=== PATIENT | male | born 1975 | race Caucasian/White ===

== ENCOUNTER 2022-08-22 09:09 | Outpatient (REF) | payer OTHER, SELFPAY ==
[2022-08-23 12:46] LABS: Follicle Stimulating Hormone 5.4 mIU/mL (1.6-8.0); Lutenizing Hormone 9.3 mIU/mL (1.5-9.3)
[2022-08-23 16:56] LABS: DHEA Sulfate 57 mcg/dL (61-442)
[2022-08-27 04:32] LABS: Metanephrine, Free 33 pg/mL (<=57); Normetanephrines, Free 74 pg/mL (<=148); Total Metanephrine, Free 107 pg/mL (<=205)
[2022-08-27 14:07] LABS: Testosterone-Albumin 4.1 g/dL (3.6-5.1); Testosterone-Bioavailable 150.2 ng/dL (110.0-575.0); Testosterone-Free 79.8 pg/mL (46.0-224.0); Testosterone-SHBG 66 nmol/L (10-50); Testosterone-Total 975 ng/dL (250-1100)
[2022-08-28 12:37] LABS: Renin 0.38 ng/mL/h (0.25-5.82)
== END 2022-08-22 09:10 | disposition home or self-care (01) ==
LOC: HO.LAB 09:09
PROVIDERS: PCP Nurse Practitioner Family; Visit Provider Internal Medicine Endocrinology, Diabetes & Metabolism
DX: D35.00 Benign neoplasm of unspecified adrenal gland (principal)
CPT/HCPCS: 36415; 82088; 82627; 83001; 83002; 83835; 84244; 84402; 84403

== ENCOUNTER 2022-08-29 07:45 | Outpatient (REF) | payer OTHER, SELFPAY ==
[2022-08-29 11:06] LABS: Cortisol Random < 1.0 ug/dL
[2022-09-06 11:07] LABS: Dexamethasone 267 ng/dL
== END 2022-08-29 07:46 | disposition home or self-care (01) ==
LOC: HO.LAB 07:45
PROVIDERS: PCP Nurse Practitioner Family; Visit Provider Internal Medicine Endocrinology, Diabetes & Metabolism
DX: D35.00 Benign neoplasm of unspecified adrenal gland (principal)
CPT/HCPCS: 36415; 80299; 82533

== ENCOUNTER 2022-09-06 07:53 | Outpatient (REF) | payer OTHER, SELFPAY ==
--- NOTE | ~2022-09-06 | CT_ITS ---
EXAMINATION: CT ABDOMEN WITHOUT CONTRAST CLINICAL INFORMATION: Benign neoplasm of adrenal gland COMPARISON: None TECHNIQUE: Contiguous axial thin section helical images of the abdomen were performed without contrast. The data set was reformatted in the coronal and sagittal planes and reviewed on an independent workstation. This CT examination was performed using dose optimization techniques as appropriate, variously including the following: *Automated exposure control *Adjustment of mA and/or kV according to patient size (this includes techniques or standardized protocols for targeted exams where dose is matched to indication/reason for exam; i.e. extremities or head) *Use of iterative reconstruction technique DLP: 286 mGy-cm FINDINGS: LUNG BASES: The lung bases are clear. LIVER, GALLBLADDER, BILIARY TREE: The visualized liver is unremarkable. The visualized gallbladder is unremarkable. PANCREAS: Unremarkable SPLEEN: Unremarkable ADRENAL GLANDS AND KIDNEYS: There is a 1 x 1.5 cm low-attenuation lesion in the posterior limb of the left adrenal gland. Mean Hounsfield units measure 6.8, raising -39-43, suggestive of a benign adenoma. The adrenal glands are otherwise normal. There is a 2.5 cm low-attenuation lesion in the upper pole the right kidney suggestive of a cyst. No imaging follow-up. Kidneys are otherwise unremarkable. BOWEL LOOPS: Visualized bowel is unremarkable. LYMPH NODES: Normal. VASCULAR: Unremarkable. BONES: Unremarkable CT/CT abdomen wo IV con IMPRESSION: 1 x 1.5 cm low-attenuation lesion in the posterior limb of the left adrenal gland suggestive of a benign rich adenoma. Right renal cyst. Fleischner guidelines were followed.
== END 2022-09-06 07:54 | disposition home or self-care (01) ==
LOC: HO.CT 07:53
PROVIDERS: PCP Nurse Practitioner Family; Visit Provider Internal Medicine Endocrinology, Diabetes & Metabolism
DX: D35.00 Benign neoplasm of unspecified adrenal gland (principal)
CPT/HCPCS: 74150

== ENCOUNTER → 2022-10-31 09:30 | Outpatient (BNVA) | payer OTHER, SELFPAY | PROVIDERS: PCP Nurse Practitioner Family; Visit Provider Internal Medicine Endocrinology, Diabetes & Metabolism | DX: D35.00 Benign neoplasm of unspecified adrenal gland (principal) ==

== ENCOUNTER 2023-10-30 07:50 | Outpatient (AMB) | payer OTHER, SELFPAY ==
[2023-10-30 07:53] VITALS: BP 126/84; PULSE 59; BMI 42.6
--- NOTE | 2023-10-30 07:53 | A.OFFVIS_ITS ---
Intake Vital Signs 10/30/23 07:53 Height 6 ft 4.85 in Weight 358 lb 0.491 oz BMI 42.6 BP 126/84 Blood Pressure Location Rt brachial Position Sitting Pulse 59 Pulse Source Pulse Oximeter Intake Visit Reasons: adrenal adenoma-confirmed Intake Note: Patient present today for Adrenal adenoma follow up visit. 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 Had CT abdomen/pelvis 07/31/2022 for which revealed 1.7 cm adrenal adenoma 11 Hounsfield U. repeat imaging was consistent with a benign adenoma with low Housfield units Denies history of spells with headache, flushing, diaphoresis, abdominal pain or diarrhea. Denies any weight gain, frequent infections, easy bruisability, development of violaceous striae. +History of HTN, controlled on agents. No history of anticoagulant use. [Denies] any weight loss, orthostatic symptoms, hypoglycemia. No history of malignancy or TB. Decrease in libido and errection function. No liver problems . Imaging: Labs: Showed elevated testosterone, elevated SHBG and borderline elevated free testosterone Further workup showed normal testosterone, normal free testosterone, normal plasma metanephrines, normal dexamethasone suppression test and normal renin and aldosterone No sx of pheochromocytoma [facility] Medical History (Updated 08/22/22 @ 08:35 by Roscoe López MD) Adrenal adenoma Surgical History History of carpal tunnel surgery History of fracture of right ankle History of tonsillectomy and adenoidectomy History of placement of ear tubes Family History Mother Diabetes Cancer Dementia Uterine cancer Father Lung cancer Social History Household Members: Significant Other and Family Household Members Other:: fiance, 3 kids Alcohol intake: current Alcohol intake frequency: holidays/special occasions only Patient Tobacco Use Status: Current everyday Tobacco user Physical Exam Vital Signs: Last Vital Signs Pulse 59 10/30/23 07:53 BP 126/84 10/30/23 07:53 BMI result Body Mass Index 42.6 Assessment & Plan Assessment & Plan (1) Adrenal adenoma: Code(s): D35.00 - Benign neoplasm of unspecified adrenal gland Plan: This is a 47-year-old white male with a history of adrenal adenoma with imaging consistent benign adenoma and found to be non-secretory. The plan is for observation. Will repeat dexamethasone suppression test Orders: Orders Dexamethasone Today D35.00 - Benign neoplasm of unspecified adrenal gland Cortisol Random Today D35.00 - Benign neoplasm of unspecified adrenal gland Medications: New dexamethasone 1 mg PO ONCE 1 tab 0RF Coding Level of Care Code Est Pt Level 3 (73690) Diagnoses Adrenal adenoma D35.00
== END 2023-10-30 08:14 | disposition home or self-care (01) ==
PROVIDERS: PCP Nurse Practitioner Family; Visit Provider Internal Medicine Endocrinology, Diabetes & Metabolism
DX: D35.00 Benign neoplasm of unspecified adrenal gland (principal)
CPT/HCPCS: 99213

== ENCOUNTER → 2023-10-30 07:50 | Outpatient (BNVA) | payer OTHER, SELFPAY | PROVIDERS: PCP Nurse Practitioner Family; Visit Provider Internal Medicine Endocrinology, Diabetes & Metabolism ==

== ENCOUNTER 2024-10-30 07:58 | Outpatient (AMB) | payer OTHER, SELFPAY ==
[2024-10-30 08:00] VITALS: BP 124/70; PULSE 71; BMI 46.4
--- NOTE | 2024-10-30 08:00 | A.OFFVIS_ITS ---
Vital Signs 3 10/30/24 08:00 Height 6 ft 4.85 in Weight 389 lb 8.909 oz BMI 46.4 BP 124/70 Blood Pressure Location Rt brachial Position Sitting Pulse 71 Pulse Source Pulse Oximeter Intake Visit Reasons: adrenal adenomaD Intake Note: Patient present today for adrenal adenoma office visit. 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 Accompanied by: Self / Same As Patient Allergies Penicillins Allergy (Unknown, Verified 10/30/24 08:03) Rash bupropion [From Wellbutrin] Adverse Reaction (Unknown, Verified 10/30/24 08:03) Insomnia Medication List - Last Reconciled 10/30/24 by Abeba Joseph MD aspirin (Adult Low Dose Aspirin) 81 mg PO DAILY atenolol 50 mg PO DAILY cholecalciferol (vitamin D3) 125 mcg PO DAILY esomeprazole magnesium (Nexium 24HR) 20 mg PO DAILY magnesium oxide 400 mg PO DAILY [id number] oil 350-600 mg (Fish Oil) caps PO sildenafil (Viagra) 25 mg PO DAILY PRN HPI Comments Details: 47 YO M with who is seen for follow up for left adrenal incidentaloma. HPI from prior visit Had CT abdomen/pelvis 07/31/2022 for which revealed 1.7 cm adrenal adenoma 11 Hounsfield U. repeat imaging 09/06/22 was consistent with a left 1.5 cm benign adenoma with low Housfield units Denies history of spells with headache, flushing, diaphoresis, abdominal pain or diarrhea. Denies any weight gain, frequent infections, easy bruisability, development of violaceous striae. +History of HTN, controlled on agents. No history of anticoagulant use. [Denies] any weight loss, orthostatic symptoms, hypoglycemia. No history of malignancy or TB. Decrease in libido and errection function. No liver problems . 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 Obesity Current BMI 46.4 kg per m2 Current weight 389 lb, in October 2022 used to be 358 lb He is not exercising due to joint pains and bad knees. 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 Not following any specific diet. No change in ring size or shoe size. He is getting evaluated for hypercortisolism due to left adrenal incidentaloma. Physical exam General: sitting comfortably in no acute distress HEENT: normocephalic/atraumatic, moist oral mucosa Neck: supple, symmetrical, no thyromegaly , does have dorsocervical and supraclavicular fat pads Cardiac: normal heart sounds Pulm: normal breath sounds B/L, no added breath sounds Abd: not distended, no tenderness, no wide purple striae noted Extremities: no edema, no signs of myxedema, does have upper proximal muscle weakness power 4/5 Laboratory Tests 08/22/22 08/29/22 09:32 07:54 Albumin 4.1 Renin 0.38 Aldosterone 2 FSH 5.4 Luteinizing Hormone 9.3 Testosterone Level 975 Free Testoster w SHBG 79.8 Bioavail Testosterone 150.2 Sex Hormone Bind Glob 66 H DHEA Sulfate 57 L Random Cortisol < 1.0 Plasma Free Metaneph 33 Plasma Free Normeta 74 Plas Total Metaneph [address] ABDOMEN WITHOUT CONTRAST 09/06/22 CLINICAL INFORMATION: Benign neoplasm of adrenal gland COMPARISON: None TECHNIQUE: Contiguous axial thin section helical images of the abdomen were performed without contrast. The data set was reformatted in the coronal and sagittal planes and reviewed on an independent workstation. This CT examination was performed using dose optimization techniques as appropriate, variously including the following: *Automated exposure control *Adjustment of mA and/or kV according to patient size (this includes techniques or standardized protocols for targeted exams where dose is matched to indication/reason for exam; i.e. extremities or head) *Use of iterative reconstruction technique DLP: 286 mGy-cm FINDINGS: LUNG BASES: The lung bases are clear. LIVER, GALLBLADDER, BILIARY TREE: The visualized liver is unremarkable. The visualized gallbladder is unremarkable. PANCREAS: Unremarkable SPLEEN: Unremarkable ADRENAL GLANDS AND KIDNEYS: There is a 1 x 1.5 cm low-attenuation lesion in the posterior limb of the left adrenal gland. Mean Hounsfield units measure 6.8, raising -39-43, suggestive of a benign adenoma. The adrenal glands are otherwise normal. There is a 2.5 cm low-attenuation lesion in the upper pole the right kidney suggestive of a cyst. No imaging follow-up. Kidneys are otherwise unremarkable. BOWEL LOOPS: Visualized bowel is unremarkable. LYMPH NODES: Normal. VASCULAR: Unremarkable. BONES: Unremarkable CT/CT abdomen wo IV con IMPRESSION: 1 x 1.5 cm low-attenuation lesion in the posterior limb of the left adrenal gland suggestive of a benign rich adenoma. Right renal cyst. Fleischner guidelines were followed. [facility] Medical History (Updated 10/30/24 @ 08:29 by Abeba Joseph MD) Obesity Adrenal adenoma Surgical History History of carpal tunnel surgery History of fracture of right ankle History of tonsillectomy and adenoidectomy History of placement of ear tubes Family History Mother Diabetes Cancer Dementia Uterine cancer Father Lung cancer Social History Household Members: Significant Other and Family Household Members Other:: fiance, 3 kids Alcohol intake: current Alcohol intake frequency: holidays/special occasions only Patient Tobacco Use Status: Current everyday Tobacco user Physical Exam Vital Signs: BMI result Body Mass Index 46.4 Assessment & Plan Assessment & Plan (1) Adrenal adenoma: Code(s): D35.00 - Benign neoplasm of unspecified adrenal gland Category: Medical Plan: 48-year-old male with past medical history significant for hypertension, atrial fibrillation who was found to have a 1.7 cm left adrenal incidentaloma on CT scan in July 2022. Repeat imaging done in August 2022 showed a 1.5 cm left adrenal adenoma, lipid rich features. Consistent with benign adenoma. Lab workup from July 2022 showed no concern for primary hyperaldosteronism, ruled out pheochromocytoma with normal plasma metanephrine levels and normetanephrine levels, normal 1 mg dexamethasone suppression test from August 2022. At this time he has had a weight gain of 30 lb in the past year. Though this could be due to excess calorie consumption, we will repeat 1 mg dexamethasone suppression test. Plan: -ordered 1 mg dexamethasone suppression tests -if results of these are normal we will plan to see him back in 1 year, if abnormal results we will arrange sooner follow up (2) Obesity: Code(s): E66.9 - Obesity, unspecified Category: Medical Qualifiers: Obesity type: due to excess calories Obesity classification: adult class 3 (BMI >= 40) Serious obesity comorbidity presence: with serious comorbidity Body mass index: BMI 45.0-49.9 Qualified Code(s): E66.813 - Obesity, class 3; E66.01 - Morbid (severe) obesity due to excess calories; Z68.42 - Body mass index [BMI] 45.0-49.9, adult Plan: Current BMI 46.4 kg per m2. Has a history of hypertension, so also has comorbidity with the obesity. Current weight 389 lb, has gained 30 lb in the past year. No change in ring size or shoe size. He is not interested in weight loss medications or bariatric surgery at this time. I know what to do I just have to do it I provided weight loss counseling education with lifestyle modification. Patient will let us know if he is interested in further weight management. Plan I spent 30 minutes in reviewing the record, seeing the patient and documenting in the medical record. Orders: Orders 2 Adrenocorticotropic Hormone Today D35.00 - Benign neoplasm of unspecified adrenal gland Dexamethasone Today D35.00 - Benign neoplasm of unspecified adrenal gland Cortisol Random Today D35.00 - Benign neoplasm of unspecified adrenal gland Medications: New 2 dexamethasone Take 1 tablet at 11 pm at night and do blood work next day at 8 AM 1 mg PO DAILY 1 tab 0RF Patient Instructions: Dexamethasone suppression test I would like you to do a dexamethasone suppression test to rule out Cushings syndrome. You will take a 1 mg pill of dexamethasone at 11 PM and then have a blood draw for cortisol at 8AM the next morning. It is important to make sure you take the dexamethasone at 11 PM and have the blood test as close to 8AM as possible. Weight loss counselling ? Limit added sugars to less than 25 grams daily. There are 4.2 grams of sugar per teaspoon of sugar. A teaspoon of honey has 6 grams of sugar! Bread also can have more sugar than you think-check labels ? No soda or juices. Drink water, unsweetened iced tea or seltzer ? Limit eating out/take out or prepared meals to twice weekly at most ? Avoid red meat, hot dogs, sawyer and deli meat. Substitute plant protein for animal protein as much as you can. Beans, nuts, tofu, soy milk ? Limit cheese to 1 ounce a few times weekly ? Eat high fiber foods like beans, apples and green veggies, salsa is a great snack with whole grain cracker like Wasa ? Look for the whole grain stamp when choosing bread etc. Aim for 48 grams of whole grains daily. Whole wheat does not equal whole grains! ? Don't keep tempting treats in the house. Go out once in a while for a treat. ? Don't eat anything deep fried or cream based-no sour cream Try to aim for 17961 steps per day, start with 5000 steps and work your way up to 27829 steps daily You can download phone applications such as [employer] or [employer] to track your calorie intake IF you eat daily 500 calories less than you need by tracking calories with this joshua you will lose 1 lbs per week Please let us know if you are interested in talking with us about weight loss medications or weight loss surgery Obesity leads to heart disease, stroke, sleep apnea, joint issues. Coding Level of Care Code Est Pt Level 4 (08481) Diagnoses Adrenal adenoma D35.00 Class 3 severe obesity due to excess calories with serious comorbidity and body mass index (BMI) of 45.0 to 49.9 in adult E66.813; E66.01; Z68.42 Obesity type: due to excess calories Obesity classification: adult class 3 (BMI >= 40) Serious obesity comorbidity presence: with serious comorbidity Body mass index: BMI 45.0-49.9 Time Spent (min) 30
== END 2024-10-30 08:27 | disposition home or self-care (01) ==
PROVIDERS: PCP Nurse Practitioner Family; Visit Provider Student in an Organized Health Care Education/Training Program
DX: D35.00 Benign neoplasm of unspecified adrenal gland (principal); E66.813 Obesity, class 3; E66.01 Morbid (severe) obesity due to excess calories; Z68.42 Body mass index [BMI] 45.0-49.9, adult
CPT/HCPCS: 99214

== ENCOUNTER → 2024-10-30 07:58 | Outpatient (BNVA) | payer OTHER, SELFPAY | PROVIDERS: PCP Nurse Practitioner Family; Visit Provider Student in an Organized Health Care Education/Training Program ==